=== PATIENT | female | born 1960 | race Caucasian/White ===

== ENCOUNTER 2021-01-22 13:15 | Observation (INO) ==
[2021-01-22 13:23] VITALS: BMI 32.4
[2021-01-22] MEDS ORDERED: NS 1000 ML 1,000 ML IV ONE (13:51)
[2021-01-22] MEDS ORDERED: ZOFRAN INJ 4 MG VIAL IVP ONE (13:51)
[2021-01-22] MEDS ORDERED: NS 1000 ML 1,000 ML ONE ×2 (13:57→19:35)
[2021-01-22] MEDS ORDERED: ZOFRAN INJ 4 MG VIAL ONE ×2 (13:57→20:39)
--- NOTE | 2021-01-22 14:03 | ED.ABDFE ---
HPI Time Seen Time Seen by Provider: 01/22/21 13:51 PCP Primary Care Physician: KINSEY HPI Comment HPI Comment: Patient notes that she has been vomiting x 3 days. Unable to tolerate po. No known sick contacts or bad food exposure. notes that she has h/o reflux for which she takes Rolaids occassionally. Complaint Chief Complaint:: PATIENT CAME TO ER REPORTS VOMITTING X 3 DAYS WITH ABDOMINAL CRAMPS. COVID-19 Coronavirus risk:travel/contact w/high risk person: No Has patient experienced Coronavirus symptoms: No Source History Provided: Patient Mode of arrival Mode of Arrival: Wheelchair Timing Onset of Chief Complaint: 01/19/21 PMH PMH Past Medical History: Yes Past Medical History: Hypertension Past Medical History Comment: CHRONIC PAIN Past Surgical History: Yes Past Surgical History Comment: 13+ SURGERIES FOR BEING SCALPED Family History History of Family Medical Conditions: Yes Family Medical History: Diabetes Mellitus and Cancer Social History Alcohol Use: Rarely Do you use any recreational Drugs:: No Lives With: Alone Lives Where: Home Travel Risk Coronavirus risk:travel/contact w/high risk person: No Has patient experienced Coronavirus symptoms: No Infectious screening In the last 2 months have you had wt loss of >10#?: NO Have you had fever, night sweats or hemotysis?: No Have you traveled outside the country in the last 6 months?: No Isolation: Standard ROS Review of Systems Constitutional: See HPI Gastrointestinal/Abdominal: See HPI, Abdominal Pain, Nausea and Vomiting; negat pawel Constipation, Diarrhea, Food Intolerance and Other All Other Systems: Reviewed and Negative PE Vital Signs Vitals: Temperature 97.7 F Pulse Rate 98 Respiratory Rate 16 Blood Pressure 137/95 O2 Sat by Pulse Oximetry 97 General Limitations: No Limitations General Appearance: Alert and In No Apparent Distress Head Head Exam: Normal Inspection, Atraumatic and Normocephalic Eyes Eye exam: Normal Appearance and EOMI ENT ENT Exam: Normal Exam and Normal Oropharynx Neck Neck Exam: Normal Inspection and Trachea Midline Chest Chest Inspection: Normal Inspection and Symmetric Chest Wall Rise Respiratory Respiratory Exam: Normal Lung Sounds Bilat Respiratory Exam: Bilateral: Clear to Auscultation Cardiovascular Cardiovascular Exam: Regular Rate and Normal Rhythm Abdominal Exam Abdominal Exam: Normal Inspection, Normal Bowel Sounds and Tenderness Abdominal Tenderness: Diffuse Extremeties Extremities Exam: Normal Inspection Neurologic Neurological Exam: Alert and Oriented X3 Psychiatric Psychiatric Exam: Normal Affect and Normal Mood Skin Skin Exam: Warm, Dry and Intact COURSE Reevaluation 1st: Improved Consultation Consultation Comments: Spoke with Dr. Parra. he will admit patient to his service. [facility] Labs Reviewed Laboratory Results Reviewed?: Yes Result Diagrams: 01/22/21 14:32 01/22/21 14:32 Laboratory: WBC 12.0 X10^3/uL (3.6-10.0) H 01/22/21 14:32 RBC 5.07 X10^6/uL (3.5-5.4) 01/22/21 14:32 Hgb 15.8 g/dL (12.0-16.0) 01/22/21 14: Hct 46.1 % (36.0-47.0) 01/22/21 14: MCV 90.8 fL (80.0-100.0) 01/22/21 14: MCH 31.1 pg (27.0-34.0) 01/22/21 14:32 MCHC 34.2 g/dL (33.0-35.0) 01/22/21 14:32 RDW 14.1 % (11.6-16.5) 01/22/21 14:32 Plt Count 255 X10^3/uL (150.0-450.0) 01/22/21 14: MPV 7.6 fL (7.4-11.0) 01/22/21 14:32 Neut % (Auto) 79.0 % (42.0-75.0) H 01/22/21 14:32 Lymph % (Auto) 14.1 % (21.0-51.0) L 01/22/21 14:32 Gallia % (Auto) 6.4 % (0.0-13.0) 01/22/21 14:32 Eos % (Auto) 0.1 % (0.9-2.9) L 01/22/21 14:32 Baso % (Auto) 0.4 % (0.2-1.0) 01/22/21 14:32 Neut # (Auto) 9.5 x10^3/uL (2.2-4.8) H 01/22/21 14:32 Lymph # (Auto) 1.7 X10^3/uL (1.3-2.9) 01/22/21 14:32 Gallia # (Auto) 0.8 x10^3/uL (0.3-0.8) 01/22/21 14:32 Eos # (Auto) 0.0 x10^3/uL (0.0-0.2) 01/22/21 14:32 Baso # (Auto) 0.1 X10^3/uL (0.0-0.1) 01/22/21 14:32 Absolute Nucleated RBC 0.1 /100WBC 01/22/21 14:32 Sodium 140 mmol/L (136-145) 01/22/21 14:32 Corrected Sodium 141 mmol/L (136-145) 01/22/21 14:32 Potassium 3.9 mmol/L (3.5-5.1) 01/22/21 14:32 Chloride 100 mmol/L (98-107) 01/22/21 14:32 Carbon Dioxide 28.1 mmol/L (21-32) 01/22/21 14:32 BUN 27 mg/dL (7-18) H 01/22/21 14:32 Creatinine 0.98 mg/dL (0.55-1.02) 01/22/21 14:32 Est GFR (MDRD) Af Amer > 60 (>60) 01/22/21 14:32 Est GFR (MDRD) Non-Af > 60 (>60) 01/22/21 14:32 Glucose 128 mg/dL (65-99) H 01/22/21 14:32 Calcium 9.8 mg/dL (8.5-10.1) 01/22/21 14:32 Corrected Calcium TNP 01/22/21 14:32 Total Bilirubin 0.30 mg/dL (0.2-1.0) 01/22/21 14:32 AST 14 Units/L (15-37) L 01/22/21 14:32 ALT 16 Units/L (12-78) 01/22/21 14:32 Alkaline Phosphatase 59 Units/L (46-116) 01/22/21 14:32 Total Protein 8.1 g/dL (6.4-8.2) 01/22/21 14:32 Albumin 3.7 g/dL (3.4-5.0) 01/22/21 14:32 Globulin 4.4 g/dL (2.5-4.5) 01/22/21 14:32 Albumin/Globulin Ratio 0.8 Ratio (1.1-2.1) L 01/22/21 14:32 Amylase 53 Units/L (25-115) 01/22/21 14:32 Lipase 138 Units/L (73-393) 01/22/21 14:32 Specimen Type Random urine 01/22/21 16:34 Urine Color Yellow (YELLOW) 01/22/21 16:34 Urine Appearance Clear (CLEAR) 01/22/21 16:34 Urine pH 6.0 (5.0 - 8.0) 01/22/21 16:34 Ur Specific Quinton 1.020 (1.000-1.030) 01/22/21 16:34 Urine Protein Negative (NEGATIVE) 01/22/21 16:34 Urine Glucose (UA) Negative (NEGATIVE) 01/22/21 16:34 Urine Ketones 2+ (NEGATIVE) 01/22/21 16:34 Urine Occult Blood 1+ (NEGATIVE) 01/22/21 16:34 Urine Nitrite Negative (NEGATIVE) 01/22/21 16:34 Urine Bilirubin Negative (NEGATIVE) 01/22/21 16:34 Urine Urobilinogen Normal (NORMAL) 01/22/21 16:34 Ur Leukocyte Esterase 1+ (NEGATIVE) 01/22/21 16:34 Urine RBC 3-5 /HPF (0-3) A 01/22/21 16:34 Urine WBC 3-5 /HPF (0-5) 01/22/21 16:34 Ur Squamous Epith Cells Moderate /HPF (NEGATIVE) 01/22/21 16:34 Urine Bacteria 1+ /HPF (NEGATIVE) 01/22/21 16:34 Urine Mucus Moderate /HPF (NEGATIVE) 01/22/21 16:34 Ur Culture Indicated? No/not indicated 01/22/21 16:34 XRAY X-ray Results: EXAM: CT ABDOMEN AND PELVIS WITHOUT INTRAVENOUS CONTRAST HISTORY: Vomiting x3 days. Abdominal pain. TECHNIQUE: Spiral axial CT images are obtained through the abdomen and pelvis without the administration of intravenous contrast. Additional coronal and sagittal reformatted images are reconstructed. DOSIMETRY: Total DLP 628.1 mGycm; CTDI 13.4 mGy COMPARISON: None available. FINDINGS: GASTROINTESTINAL TRACT: There is no evidence for bowel herniation, bowel obstruction, colitis or diverticulitis. 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 The kidneys are unremarkable. There is no ureteral calculus or stigmata of obstructive uropathy. The urinary bladder is grossly unremarkable for a non-dedicated exam. REPRODUCTIVE SYSTEM: The uterus and adnexa appear grossly unremarkable for a noncontrast CT scan. CT ABDOMEN: There is suggestion of cholelithiasis with questionable gallbladder wall thickening. Consider follow-up evaluation with ultrasound and/or HIDA scan to rule out acute cholecystitis as clinically warranted. Severe aortoiliac atherosclerotic disease, without aneurysm formation. The liver, spleen, pancreas, adrenal glands and inferior vena cava are within normal limits for a noncontrast CT scan. There is no intra-abdominal or retroperitoneal lymphadenopathy, free fluid, or free air seen. No abdominal herniation is noted. CT PELVIS: No pelvic sidewall or inguinal lymphadenopathy is seen. No inguinal herniation is noted. No free fluid or free air is seen. Left flank spinal epidural stimulator is noted in situ. L4/5: Severe DDD, marked by severe disc space narrowing, desiccation, vacuum disc phenomenon, and prominent posterior disc bulge/HNP (projecting 7.8 mm AP, together with hypertrophic degenerative bilateral facet joints, contributing to severe lateral recess stenosis, spinal canal stenosis, and neural foraminal stenosis L4 and L5 nerve root impingements. Sagittal image 30?39; axial image 46?49. LUNG BASES: The lung bases are clear. IMPRESSION: 1. Suggestion of cholelithiasis with questionable gallbladder wall thickening. Consider follow-up evaluation with ultrasound and/or HIDA scan to rule out acute cholecystitis as clinically warranted. 2. No evidence for renal stone disease or obstructive uropathy. 3. No evidence for acute appendicitis, bowel herniation/obstruction, colitis or diverticulitis seen. 4. 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 L4/5: Severe DDD, marked by severe disc space narrowing, desiccation, vacuum disc phenomenon, and prominent posterior disc bulge/HNP (projecting 7.8 mm AP, together with hypertrophic degenerative bilateral facet joints, contributing to severe lateral recess stenosis, spinal canal stenosis, and neural foraminal stenosis L4 and L5 nerve root impingements. Sagittal image 30?39; axial image 46?49. 6. Left flank and spinal epidural stimulator in situ. 7. No free fluid, free air, mass lesions, or lymphadenopathy seen. Electronically signed by: Sky Jolley (Jan 22, 2021 17:32:22) EXAM: RIGHT UPPER QUADRANT ABDOMINAL ULTRASOUND HISTORY: Right upper quadrant abdominal pain. Abnormal CT. TECHNIQUE: Batres scale imaging, duplex Doppler and color flow Doppler imaging are performed with a curvilinear transducer. COMPARISON: CT abdomen and pelvis dated January 22, 2021. FINDINGS: LIVER: The liver is normal in size (right lobe estimated approximately 13 cm CC) and echogenicity. There is no focal hepatic mass or perihepatic ascites seen. GALLBLADDER: There is extensive cholelithiasis (with innumerable calculi filling the gallbladder lumen) in keeping with sequela of chronic cholecystitis. There is borderline gallbladder wall thickening (3.2 mm, which could reflect acute cholecystitis in the appropriate clinical setting. There is no pericholecystic fluid, or reported positive sonographic Boo's sign appreciated. BILE DUCTS: No intrahepatic or extrahepatic biliary ductal dilatation is seen. The common bile duct measures approximately 3.9 mm. RIGHT KIDNEY: The right kidney is normal in size and echogenicity. The right kidney measures approximately 9 cm x 4 cm x 6 cm. The renal cortical thickness is within normal limits measuring 1.3 cm. There is no hydronephrosis, shadowing calculus, renal mass, or perinephric fluid collections seen. MISCELLANEOUS: The aorta and inferior vena cava are normal in size and contour. The pancreas appears grossly unremarkable. IMPRESSION: 1. Extensive cholelithiasis (with innumerable calculi filling the gallbladder lumen) in keeping with sequela of chronic cholecystitis. 2. Borderline gallbladder wall thickening (3.2 mm, which could reflect acute cholecystitis in the appropriate clinical setting. 3. Consider follow-up evaluation with HIDA scan to rule out cystic duct obstruction and acute cholecystitis as clinically warranted. Electronically signed by: Sky Jolley (Jan 22, 2021 18:25:22) Opioid Opioid Risk Tool Age (Evangelist box if 16-45): No History of Preadolescent Sexual Abuse: No Total: 0 Total Score Risk Category: Low Risk Copyright: Ollie PARISH predicting aberrant behaviors Diagnosis Discharge Problem: Cholelithiasis and acute cholecystitis without obstruction
--- NOTE | 2021-01-22 14:21 | RAD ---
HISTORYVOMITING, ABDOMINAL PAINSTUDYACUTE ABDOMEN SERIESCOMPARISONNoneTECHNIQUEThree view acute abdomen series.FINDINGSThe cardiac and mediastinal contours are within normal limits. The lungs are clear without focal consolidation or segmental collapse. No pleural effusion or pneumothorax. Surgical device in the left abdomen likely a vagal stimulator.Nonobstructive bowel gas pattern. No definite pneumatosis, free air or portal venous gas. No suspicious abdominal calcifications. Moderate lumbar spondylosis. Soft tissue attenuation limits evaluation.IMPRESSIONNonobstructive bowel gas pattern.Electronically signed by: Scar Finn (Jan 22, 2021 14:19:02)
[2021-01-22 14:53] LABS: BASOPHILS # (AUTO) 0.1 X10^3/uL (0.0-0.1); BASOPHILS % (AUTO) 0.4 % (0.2-1.0); EOSINOPHILS % (AUTO) 0.1 % (0.9-2.9); HEMATOCRIT 46.1 % (36.0-47.0); HEMOGLOBIN 15.8 g/dL (12.0-16.0); LYMPHOCYTES # (AUTO) 1.7 X10^3/uL (1.3-2.9); LYMPHOCYTES % (AUTO) 14.1 % (21.0-51.0); MEAN CORPUSCULAR HEMOGLOBIN 31.1 pg (27.0-34.0); MEAN CORPUSCULAR HGB CONC 34.2 g/dL (33.0-35.0); MEAN CORPUSCULAR VOLUME 90.8 fL (80.0-100.0); MEAN PLATELET VOLUME 7.6 fL (7.4-11.0); MONOCYTES # (AUTO) 0.8 x10^3/uL (0.3-0.8); MONOCYTES % (AUTO) 6.4 % (0.0-13.0); NEUTROPHILS # (AUTO) 9.5 x10^3/uL (2.2-4.8); PLATELET COUNT 255 X10^3/uL (150.0-450.0); RED BLOOD COUNT 5.07 X10^6/uL (3.5-5.4); RED CELL DISTRIBUTION WIDTH 14.1 % (11.6-16.5)
[2021-01-22 15:04] LABS: ALANINE AMINOTRANSFERASE 16 Units/L (12-78); ALBUMIN 3.7 g/dL (3.4-5.0); ALKALINE PHOSPHATASE 59 Units/L (46-116); AMYLASE 53 Units/L (25-115); ASPARTATE AMINO TRANSFERASE 14 Units/L (15-37); BLOOD UREA NITROGEN 27 mg/dL (7-18); CALCIUM 9.8 mg/dL (8.5-10.1); CARBON DIOXIDE 28.1 mmol/L (21-32); CHLORIDE 100 mmol/L (98-107); COR NA(FOR HYPERGLY) 141 mmol/L (136-145); CREATININE 0.98 mg/dL (0.55-1.02); LIPASE 138 Units/L (73-393); SODIUM 140 mmol/L (136-145); TOTAL PROTEIN 8.1 g/dL (6.4-8.2); eGFR NON BLACK RACES > 60 (>60)
[2021-01-22] MEDS ORDERED: COMPAZINE INJ IVP ONE (15:16)
[2021-01-22] MEDS ORDERED: COMPAZINE INJ ONE (15:19)
[2021-01-22 16:39] LABS: APPEARANCE,URINE CLEAR (CLEAR); BILIRUBIN,URINE NEGATIVE (NEGATIVE); BLOOD/HEMOGLOBIN,URINE 1+ (NEGATIVE); COLOR,URINE YELLOW (YELLOW); GLUCOSE, URINE NEGATIVE (NEGATIVE); KETONES,URINE 2+ (NEGATIVE); LEUKOCYTE ESTERASE ,URINE 1+ (NEGATIVE); NITRITES,URINE NEGATIVE (NEGATIVE); PROTEIN,URINE NEGATIVE (NEGATIVE); UROBILINOGEN,URINE NORMAL (NORMAL)
[2021-01-22 16:53] LABS: BACTERIA,URINE 1+ /HPF (NEGATIVE); MUCUS,URINE MODERATE /HPF (NEGATIVE); SQUAMOUS EPITHELIAL CELL,UR MODERATE /HPF (NEGATIVE)
--- NOTE | 2021-01-22 17:34 | CT ---
EXAM: CT ABDOMEN AND PELVIS WITHOUT INTRAVENOUS CONTRASTHISTORY: Vomiting x3 days. Abdominal pain.TECHNIQUE: Spiral axial CT images are obtained through the abdomen and pelvis without the administration of intravenous contrast. Additional coronal and sagittal reformatted images are reconstructed.DOSIMETRY: Total DLP 628.1 mGycm; CTDI 13.4 mGyCOMPARISON: None available.FINDINGS:GASTROINTESTINAL TRACT: There is no evidence for bowel herniation, bowel obstruction, colitis or diverticulitis. 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 The kidneys are unremarkable. There is no ureteral calculus or stigmata of obstructive uropathy. The urinary bladder is grossly unremarkable for a non-dedicated exam.REPRODUCTIVE SYSTEM: The uterus and adnexa appear grossly unremarkable for a noncontrast CT scan.CT ABDOMEN: There is suggestion of cholelithiasis with questionable gallbladder wall thickening. Consider follow-up evaluation with ultrasound and/or HIDA scan to rule out acute cholecystitis as clinically warranted. Severe aortoiliac atherosclerotic disease, without aneurysm formation. The liver, spleen, pancreas, adrenal glands and inferior vena cava are within normal limits for a noncontrast CT scan. There is no intra-abdominal or retroperitoneal lymphadenopathy, free fluid, or free air seen. No abdominal herniation is noted.CT PELVIS: No pelvic sidewall or inguinal lymphadenopathy is seen. No inguinal herniation is noted. No free fluid or free air is seen. Left flank spinal epidural stimulator is noted in situ. L4/5: Severe DDD, marked by severe disc space narrowing, desiccation, vacuum disc phenomenon, and prominent posterior disc bulge/HNP (projecting 7.8 mm AP, together with hypertrophic degenerative bilateral facet joints, contributing to severe lateral recess stenosis, spinal canal stenosis, and neural foraminal stenosis L4 and L5 nerve root impingements. Sagittal image 30?39; axial image 46?49.LUNG BASES: The lung bases are clear.IMPRESSION:1. Suggestion of cholelithiasis with questionable gallbladder wall thickening. Consider follow-up evaluation with ultrasound and/or HIDA scan to rule out acute cholecystitis as clinically warranted.2. No evidence for renal stone disease or obstructive uropathy.3. No evidence for acute appendicitis, bowel herniation/obstruction, colitis or diverticulitis seen.4. 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 L4/5: Severe DDD, marked by severe disc space narrowing, desiccation, vacuum disc phenomenon, and prominent posterior disc bulge/HNP (projecting 7.8 mm AP, together with hypertrophic degenerative bilateral facet joints, contributing to severe lateral recess stenosis, spinal canal stenosis, and neural foraminal stenosis L4 and L5 nerve root impingements. Sagittal image 30?39; axial image 46?49.6. Left flank and spinal epidural stimulator in situ.7. No free fluid, free air, mass lesions, or lymphadenopathy seen.Electronically signed by: Sky Jolley (Jan 22, 2021 17:32:22)
--- NOTE | 2021-01-22 18:27 | US ---
EXAM: RIGHT UPPER QUADRANT ABDOMINAL ULTRASOUNDHISTORY: Right upper quadrant abdominal pain. Abnormal CT.TECHNIQUE: Batres scale imaging, duplex Doppler and color flow Doppler imaging are performed with a curvilinear transducer.COMPARISON: CT abdomen and pelvis dated January 22, 2021.FINDINGS:LIVER: The liver is normal in size (right lobe estimated approximately 13 cm CC) and echogenicity. There is no focal hepatic mass or perihepatic ascites seen.GALLBLADDER: There is extensive cholelithiasis (with innumerable calculi filling the gallbladder lumen) in keeping with sequela of chronic cholecystitis. There is borderline gallbladder wall thickening (3.2 mm, which could reflect acute cholecystitis in the appropriate clinical setting. There is no pericholecystic fluid, or reported positive sonographic Boo's sign appreciated.BILE DUCTS: No intrahepatic or extrahepatic biliary ductal dilatation is seen. The common bile duct measures approximately 3.9 mm.RIGHT KIDNEY: The right kidney is normal in size and echogenicity. The right kidney measures approximately 9 cm x 4 cm x 6 cm. The renal cortical thickness is within normal limits measuring 1.3 cm. There is no hydronephrosis, shadowing calculus, renal mass, or perinephric fluid collections seen.MISCELLANEOUS: The aorta and inferior vena cava are normal in size and contour. The pancreas appears grossly unremarkable.IMPRESSION:1. Extensive cholelithiasis (with innumerable calculi filling the gallbladder lumen) in keeping with sequela of chronic cholecystitis.2. Borderline gallbladder wall thickening (3.2 mm, which could reflect acute cholecystitis in the appropriate clinical setting.3. Consider follow-up evaluation with HIDA scan to rule out cystic duct obstruction and acute cholecystitis as clinically warranted.Electronically signed by: Sky Jolley (Jan 22, 2021 18:25:22)
[2021-01-22] MEDS ORDERED: ANCEF VIAL 1 GRAM IVP ONE (19:19)
[2021-01-22] MEDS ORDERED: ANCEF VIAL 1 GRAM ONE (19:35)
[2021-01-22] MEDS ORDERED: NS 100 ML IV 100 ML IV ONE (19:37)
[2021-01-22] MEDS ORDERED: NS 1000 ML 1,000 ML IV SCH (20:00)
[2021-01-22] MEDS ORDERED: DECADRON INJ ONE (20:28)
[2021-01-22] MEDS ORDERED: BRIDION ONE (20:28)
[2021-01-22] MEDS ORDERED: FENTANYL INJ 100 mcg ONE (20:29)
[2021-01-22] MEDS ORDERED: ZEMURON 50 MG VIAL ONE ×2 (20:29→20:39)
[2021-01-22] MEDS ORDERED: OFIRMEV IV 1000 MG VIAL 1,000 MG/100 ML VIAL IV ONE (20:29)
[2021-01-22] MEDS ORDERED: PEPCID 20 MG IV PREMIX* 20 MG/50 ML BAG IV ONE (20:29)
[2021-01-22] MEDS ORDERED: BACTROBAN TOPICAL OINT ONE (20:38)
[2021-01-22] MEDS ORDERED: VERSED ONE (20:39)
[2021-01-22] MEDS ORDERED: TORADOL 30 MG VIAL ONE (20:39)
[2021-01-22] MEDS ORDERED: EPHEDRINE SULFATE INJ ONE (20:39)
[2021-01-22] MEDS ORDERED: REGLAN INJ 10 MG VIAL ONE (20:39)
[2021-01-22] MEDS ORDERED: ROBINUL ONE (20:39)
[2021-01-22] MEDS ORDERED: KETALAR ONE (20:39)
[2021-01-22] MEDS ORDERED: NEO-SYNEPHRINE INJ ONE (20:39)
[2021-01-22] MEDS ORDERED: ULTANE GAS IN ONE (20:39)
[2021-01-22] MEDS ORDERED: DIPRIVAN VIAL ONE (20:39)
[2021-01-22] MEDS ORDERED: XYLOCAINE 2 % (PLAIN) ONE (20:39)
[2021-01-22] MEDS ORDERED: LACRI-LUBE S.O.P. ONE (20:39)
[2021-01-22] MEDS ORDERED: LR 1000 ML IV 1,000 ML IV ONE (21:33)
[2021-01-22] MEDS ORDERED: MORPHINE SULFATE INJ 10 MG ONE (22:25)
[2021-01-22] MEDS: MORPHINE SULFATE INJ 10 MG IVP PRN ×2 (22:27→22:38)
[2021-01-22] MEDS ORDERED: BENADRYL INJ 50 MG VIAL IVP PRN (22:27)
[2021-01-22] MEDS ORDERED: ZOFRAN INJ 4 MG VIAL IVP PRN (22:27)
[2021-01-22] MEDS ORDERED: PHENERGAN INJ 25 MG IM PRN (22:27)
[2021-01-22] MEDS ORDERED: REGLAN INJ 10 MG VIAL IVP PRN (22:27)
[2021-01-22] MEDS: MORPHINE SULFATE INJ 2 MG INJ IVP PRN (23:16)
[2021-01-22] MEDS: D5 1/2 NS 1000 ML 1,000 ML IV SCH (23:24)
[2021-01-23] MEDS: MORPHINE SULFATE INJ 2 MG INJ IVP PRN ×2 (03:12→09:44)
[2021-01-23] MEDS: ZOFRAN INJ 4 MG VIAL IVP PRN ×3 (03:24→13:00)
[2021-01-23 05:56] LABS: BASOPHILS # (AUTO) 0.1 X10^3/uL (0.0-0.1); BASOPHILS % (AUTO) 0.4 % (0.2-1.0); LYMPHOCYTES # (AUTO) 1.2 X10^3/uL (1.3-2.9); MEAN CORPUSCULAR HEMOGLOBIN 30.7 pg (27.0-34.0); MEAN CORPUSCULAR HGB CONC 33.8 g/dL (33.0-35.0); MEAN CORPUSCULAR VOLUME 90.9 fL (80.0-100.0); MEAN PLATELET VOLUME 7.6 fL (7.4-11.0); MONOCYTES # (AUTO) 0.3 x10^3/uL (0.3-0.8); MONOCYTES % (AUTO) 2.2 % (0.0-13.0); NEUTROPHILS # (AUTO) 10.8 x10^3/uL (2.2-4.8); NEUTROPHILS % (AUTO) 87.4 % (42.0-75.0); PLATELET COUNT 216 X10^3/uL (150.0-450.0); RED BLOOD COUNT 3.96 X10^6/uL (3.5-5.4); RED CELL DISTRIBUTION WIDTH 13.6 % (11.6-16.5); WHITE BLOOD COUNT 12.3 X10^3/uL (3.6-10.0)
[2021-01-23 06:01] LABS: HEMOGLOBIN 12.2 g/dL (12.0-16.0)
[2021-01-23 06:06] LABS: ALANINE AMINOTRANSFERASE 18 Units/L (12-78); ALBUMIN 2.9 g/dL (3.4-5.0); ALKALINE PHOSPHATASE 44 Units/L (46-116); ASPARTATE AMINO TRANSFERASE 28 Units/L (15-37); BLOOD UREA NITROGEN 20 mg/dL (7-18); CALCIUM 7.7 mg/dL (8.5-10.1); CHLORIDE 102 mmol/L (98-107); COR CA(FOR HYPOALB) 8.6 mg/dL (8.5-10.1); COR NA(FOR HYPERGLY) 138 mmol/L (136-145); CREATININE 0.85 mg/dL (0.55-1.02); SODIUM 136 mmol/L (136-145); TOTAL PROTEIN 6.4 g/dL (6.4-8.2); eGFR NON BLACK RACES > 60 (>60)
[2021-01-23] MEDS: D5 1/2 NS 1000 ML 1,000 ML IV SCH (08:16)
[2021-01-23 08:35] VITALS: BP 157/79
== END 2021-01-23 13:25 | disposition home or self-care (01) ==
LOC: ER 13:15 → MED/SURG 13:15
PROVIDERS: ADMIT Surgery; ATTEND Surgery
DX: K82.8 Other specified diseases of gallbladder; Z20.822 Contact with and (suspected) exposure to COVID-19; D72.828 Other elevated white blood cell count; K80.00 Calculus of gallbladder with acute cholecystitis without obstruction; M51.36 Other intervertebral disc degeneration, lumbar region; R10.11 Right upper quadrant pain; I10 Essential (primary) hypertension

== ENCOUNTER 2021-02-08 09:46 | Observation (INO) ==
[2021-02-08] MEDS ORDERED: ZOFRAN INJ 4 MG VIAL IVP ONE (10:25)
[2021-02-08] MEDS ORDERED: MORPHINE SULFATE INJ 4 MG IVP ONE (10:25)
--- NOTE | 2021-02-08 10:30 | DR.NAUSEAF ---
HPI Time Seen Time Seen by Provider: 02/08/21 10:25 Primary Care Physician Primary Care Physician: JENNIFER HPI Comment HPI Comment: sent over by [facility] surg to be seen and taken to OR for upper GI s/p recent lap earnest Complaints Chief Complaint Doctors Comments: as above Chief Complaint:: PT C./O PERSISTANT NAUSEA AND VOMITING, ABD CRAMPING. PT STATES SHE HAS RECENTLY HAD HER GALLBLADDER REMOVED AND SHE HAS BEEN HAVING SEVERE PAIN, NAUSEA, AND VOMITING SINCE SURGERY. PT CONTACTED DR RODRIGUEZ AND WAS TLD TO COME TO ED AND BE EVALUATED. COVID-19 Coronavirus risk:travel/contact w/high risk person: No Has patient experienced Coronavirus symptoms: No Reviewed Nurses Notes Reviewed: Yes Source History Provided: Patient Mode of Arrival Mode of Arrival: Ambulatory Timing Onset of Chief Complaint: 01/22/21 Severity Number of episodes of vomiting over last 24 hours: 5 PMH PMH Past Medical History: Yes Past Medical History: Hypertension Past Surgical History: Yes Surgical History: , Cholecystectomy and Other Family History History of Family Medical Conditions: Yes Family Medical History: Diabetes Mellitus and Cancer Social History Does patient currently use any type of tobacco product: Yes Have you used tobacco products in the last 12 months: Yes Type of Tobacco Use: Cigarettes Does any household member use tobacco: Yes Alcohol Use: None Do you use any recreational Drugs:: No Lives With: Family Lives Where: Home Travel Risk Coronavirus risk:travel/contact w/high risk person: No Has patient experienced Coronavirus symptoms: No Infectious screening In the last 2 months have you had wt loss of >10#?: NO Have you had fever, night sweats or hemotysis?: No Have you traveled outside the country in the last 6 months?: No Isolation: Standard ROS Review of Systems Constitutional: See HPI Eyes: No Symptoms Reported ENTM: No Symptoms Reported Respiratoy: No Symptoms Reported Cardiovascular: No Symptoms Reported Gastrointestinal/Abdominal: See HPI, Abdominal Pain, Nausea and Vomiting Genitourinary: No Symptoms Reported Neurological: No Symptoms Reported Musculoskeletal: No Symptoms Reported Integumentary: No Symptoms Reported Hematologic/Lymphatic: No Symptoms Reported Endocrine: No Symptoms Reported All Other Systems: Reviewed and Negative PE Vital Signs Vitals: Temperature 98.2 F Pulse Rate 103 Respiratory Rate 20 Blood Pressure [Left Arm] 157/79 Blood Pressure 121/83 O2 Sat by Pulse Oximetry 97 General Limitations: No Limitations General Appearance: Alert and In No Apparent Distress Head Head Exam: Normal Inspection Eyes Eye exam: Normal Appearance ENT ENT Exam: Normal Exam Neck Neck Exam: Normal Inspection Chest Chest Inspection: Normal Inspection Respiratory Respiratory Exam: Normal Lung Sounds Bilat Cardiovascular Cardiovascular Exam: Regular Rate, Normal Rhythm and Normal Heart Sounds Abdominal Exam Abdominal Exam: Normal Inspection, Normal Bowel Sounds and Soft; negative Dimnished Bowel Sounds Rectal Rectal Exam: Deferred Extremities Extremities Exam: Normal Inspection Back Back Exam: Normal Inspection Neurologic Neurological Exam: Alert, Oriented X3 and CN II-XII Intact Skin Skin Exam: Warm, Dry and Intact Opioid Opioid Risk Tool Age (Evangelist box if 16-45): No History of Preadolescent Sexual Abuse: No Total: 0 Total Score Risk Category: Low Risk Copyright: Ollie PARISH predicting aberrant behaviors Diagnosis Discharge Problem: Abdominal pain, Nausea and vomiting in adult patient Narrative Support Text: to OR for upper endoscopy- jahaira Britt
[2021-02-08] MEDS ORDERED: LR 1000 ML IV 1,000 ML IV ONE (10:33)
[2021-02-08] MEDS ORDERED: MORPHINE SULFATE INJ 4 MG ONE (10:33)
[2021-02-08] MEDS ORDERED: ZOFRAN INJ 4 MG VIAL ONE (10:33)
[2021-02-08] MEDS ORDERED: DIPRIVAN VIAL 20 ML ONE (10:50)
[2021-02-08] MEDS ORDERED: XYLOCAINE 2 % (PLAIN) ONE (10:50)
[2021-02-08] MEDS ORDERED: LR 1000 ML IV 1,000 ML IV SCH (11:00)
[2021-02-08 11:01] LABS: BASOPHILS % (AUTO) 0.3 % (0.2-1.0); EOSINOPHILS # (AUTO) 0.5 x10^3/uL (0.0-0.2); EOSINOPHILS % (AUTO) 5.1 % (0.9-2.9); HEMATOCRIT 36.2 % (36.0-47.0); HEMOGLOBIN 12.5 g/dL (12.0-16.0); LYMPHOCYTES # (AUTO) 3.1 X10^3/uL (1.3-2.9); LYMPHOCYTES % (AUTO) 28.8 % (21.0-51.0); MEAN CORPUSCULAR HEMOGLOBIN 31.8 pg (27.0-34.0); MEAN CORPUSCULAR HGB CONC 34.6 g/dL (33.0-35.0); MEAN CORPUSCULAR VOLUME 92.1 fL (80.0-100.0); MEAN PLATELET VOLUME 7.2 fL (7.4-11.0); MONOCYTES # (AUTO) 0.7 x10^3/uL (0.3-0.8); MONOCYTES % (AUTO) 6.2 % (0.0-13.0); NEUTROPHILS # (AUTO) 6.3 x10^3/uL (2.2-4.8); NEUTROPHILS % (AUTO) 59.6 % (42.0-75.0); PLATELET COUNT 378 X10^3/uL (150.0-450.0); RED BLOOD COUNT 3.93 X10^6/uL (3.5-5.4); RED CELL DISTRIBUTION WIDTH 14.5 % (11.6-16.5); WHITE BLOOD COUNT 10.6 X10^3/uL (3.6-10.0)
[2021-02-08 11:15] LABS: ALANINE AMINOTRANSFERASE 11 Units/L (12-78); ALBUMIN 3.7 g/dL (3.4-5.0); ALKALINE PHOSPHATASE 54 Units/L (46-116); ASPARTATE AMINO TRANSFERASE 15 Units/L (15-37); BLOOD UREA NITROGEN 16 mg/dL (7-18); CALCIUM 9.4 mg/dL (8.5-10.1); CARBON DIOXIDE 26.6 mmol/L (21-32); CHLORIDE 102 mmol/L (98-107); CREATININE 1.07 mg/dL (0.55-1.02); SODIUM 139 mmol/L (136-145); TOTAL PROTEIN 7.8 g/dL (6.4-8.2); eGFR NON BLACK RACES 56 (>60)
[2021-02-08] MEDS ORDERED: DILAUDID INJ IVP PRN (11:37)
[2021-02-08] MEDS: MORPHINE SULFATE INJ 4 MG IVP PRN ×3 (12:21→21:27)
[2021-02-08 12:51] VITALS: BMI 33.3
[2021-02-08] MEDS: D5 1/2 NS 1000 ML 1,000 ML IV SCH ×2 (13:18→16:34)
[2021-02-08] MEDS: ZOFRAN INJ 4 MG VIAL IVP SCH ×2 (13:56→17:28)
[2021-02-08] MEDS: CARAFATE ORAL SUSP PO SCH ×2 (16:27→21:19)
[2021-02-08] MEDS ORDERED: PROTONIX INJ 40 MG VIAL IVP SCH (21:00)
[2021-02-09] MEDS: ZOFRAN INJ 4 MG VIAL IVP SCH ×2 (00:01→07:50)
[2021-02-09] MEDS: D5 1/2 NS 1000 ML 1,000 ML IV SCH (00:25)
[2021-02-09] MEDS: MORPHINE SULFATE INJ 4 MG IVP PRN ×2 (01:37→07:49)
[2021-02-09 08:23] VITALS: BP 119/68
== END 2021-02-09 11:15 | disposition home or self-care (01) ==
LOC: MED/SURG 09:53 → ER 09:53 → MED/SURG 12:00
PROVIDERS: ADMIT Surgery; ATTEND Surgery
DX: Z90.49 Acquired absence of other specified parts of digestive tract; K25.3 Acute gastric ulcer without hemorrhage or perforation; K44.9 Diaphragmatic hernia without obstruction or gangrene; R11.2 Nausea with vomiting, unspecified; R10.84 Generalized abdominal pain; K29.80 Duodenitis without bleeding; I10 Essential (primary) hypertension